=== PATIENT | male | born 1950 | race Caucasian/White ===

== ENCOUNTER → 2016-09-29 | Day surgery (SDC) | payer MEDICARE, BC ==
[~2016-09-29] VITALS: Ht 172.7 cm; Wt 77.1 kg
[~2016-09-29] MED LIST: ASPIRIN EC81 MG PO; AVODART0.5 MG PO; BRILINTA60 MG PO; LEVOTHROID (S112 MCG PO; LIPITOR80 MG PO; NITROSTAT0.4 MG SL; NORCO 5-325 MG1 TAB PO; NORCO 5-325 TA1 EACH PO; PRINIVIL (ZESTR20 MG PO; SYSTANE BALANCE10 ML OPHTH
--- NOTE | ~2016-09-29 | OR ---
PATIENT'S NAME: HÉCTOR GILMORE [facility] AGE: 65 Y [address] ROOM: [place] [id number] LOCATION: [facility] [place] DATE: 09/29/2016 OR/Procedure Report DISCHARGE DATE: FAMILY PHYSICIAN: SARAH RCOHE ATTENDING PHYSICIAN: Jaylen Burgess SURGEON: Jaylen Burgess MD [employer]TS: Socorro Almendarez PA-C. DATE OF PROCEDURE: 09/29/2016 PREOPERATIVE DIAGNOSIS: Reducible right inguinal hernia. POSTOPERATIVE DIAGNOSIS: Reducible right indirect hernia with a small direct defect. PROCEDURES PERFORMED: Repair of reducible right inguinal hernia with mesh. ANESTHESIA: MAC. SPECIMENS: None. REASON FOR PROCEDURE: The patient is a 65-year-old gentleman, who had a previous left inguinal hernia in the past. Recently, he has developed a painful bulge to the right groin. On exam, he had a reducible right inguinal hernia. We discussed the risks and benefits of surgery versus ongoing observation. The patient elected to proceed with repair of this. FINDINGS: The patient had a fairly large indirect hernia sac, but also had a definite starting defect in the direct space as well. He was repaired with a medium Ultrapro plug and onlay keyhole mesh. It was a difficult repair due to the patient's ongoing coughing during the operation. PROCEDURE IN DETAIL: The patient was taken to the Operating Suite and was placed in the supine position. After IV sedation had been given, the neck and chest were prepped with ChloraPrep and sterilely draped. Marcaine was infiltrated into the incision sites. A 7 cm to 8 cm slightly oblique incision was made in the right groin. This was extended down through the subcutaneous fat and Gary fascia. The external oblique had further local infiltrated underneath this. The external oblique was then opened along the direction of its fibers down through the external ring. Cord structures were mobilized at the pubic tubercle, and a Galina drain was placed around them. A good-sized indirect hernia sac was mobilized up to the internal ring. It was a fairly broad defect at the internal ring and it was reduced. There was also a PATIENT'S NAME: HÉCTOR GILMORE [facility] AGE: 65 Y [address] ROOM: [place] [id number] LOCATION: [facility] [place] ADMIT DATE: 09/29/2016 OR/Procedure Report DISCHARGE DATE: FAMILY PHYSICIAN: SARAH ROCHE ATTENDING PHYSICIAN: Jaylen Burgess definite weakness in the floor of the inguinal canal. An Ultrapro medium plug was placed in the indirect defect and sutured in place with Prolene to the shelving edge of the inguinal ligament, as well as some to the transversalis muscle. The Ultrapro mesh was then cut into a keyhole shape and placed in the floor of the inguinal canal. The tails were brought around the cord structures to recreate the internal ring. Inferiorly, the mesh was sutured to the pubic tubercle and to the shelving edge of the inguinal ligament with a running Prolene suture. Superiorly, the mesh was tacked to the transversalis muscles with interrupted Vicryl. The Nunnelly drain was then removed. WOUND CLOSURE: The external oblique was closed with a running Vicryl suture. Gary fascia was reapproximated, and the skin was closed with subcuticular Monocryl. Benzoin, Steri-Strips, and gauze dressings were applied. POST-PROCEDURE PLAN: The patient will be sent to Recovery, and depending upon how he is doing, we can hopefully send him home later today. He is to avoid any heavy lifting or strenuous activity. He was given a prescription for Cary for pain control. We will see him back in the office in a week for re- check. He is to call sooner if any problems. MD ERIC JOHN/[email or web address] /[id number] d: 09/30/16 0124 t: 10/08/16 1348, OPERATIVE SUMMARY
== END | disposition disaster alternative care site (69) ==
LOC: GPOC 09-23 10:00 → GSDC 10:00
PROC: 0YU50JZ Supplement Right Inguinal Region with Synthetic Substitute, Open Approach (ICD-10-PCS; principal; 2016-09-29)
DX: K40.90 Unilateral inguinal hernia, without obstruction or gangrene, not specified as recurrent (principal); M19.90 Unspecified osteoarthritis, unspecified site; E78.00 Pure hypercholesterolemia, unspecified; I10 Essential (primary) hypertension; I25.2 Old myocardial infarction; I25.10 Atherosclerotic heart disease of native coronary artery without angina pectoris; E03.9 Hypothyroidism, unspecified; Z98.890 Other specified postprocedural states; Z79.82 Long term (current) use of aspirin; Z79.899 Other long term (current) drug therapy
CPT/HCPCS: C1776; J0690; J1100; J2001; J2250; J2405; J7030